=== PATIENT | female | born 1965 | race Two or more races ===

== ENCOUNTER 2020-10-30 19:43 | Emergency (ER) | payer OTHER ==
[~2020-10-30] VITALS: Ht 154.9 cm; Wt 98.9 kg
[~2020-10-30 19:43] MED LIST: HYDROXYCHLOROQ200 MG
[2020-10-30] MEDS ORDERED: DOLOGEN CAPLET1 EACH PO (23:40)
[2020-10-30] MEDS ORDERED: MEDROLPACK PO (23:40)
[2020-10-30] MEDS ORDERED: TUSNEL LIQUID178 ML PO (23:40)
[2020-10-30] MEDS ORDERED: ZITHROMAX500 MG PO (23:40)
== END 2020-10-31 00:02 | disposition home or self-care (01) ==
LOC: ER 19:43
DX: U07.1 COVID-19 (principal); B34.9 Viral infection, unspecified

== ENCOUNTER 2024-06-16 21:18 | Emergency (ER) | payer OTHER ==
[~2024-06-16] VITALS: Ht 154.9 cm; Wt 102.1 kg
[~2024-06-16 21:18] MED LIST changes: +DOLOGEN CAPLET1 EACH PO; +MEDROLPACK PO; +TUSNEL LIQUID178 ML PO; +ZITHROMAX500 MG PO
[2024-06-16] MEDS ORDERED: PLAQUENIL PO (22:08)
[2024-06-17] MEDS ORDERED: METOCLOPRAMIDE HCL 5 MG/ML VIAL IM STA (00:47)
[2024-06-17] MEDS ORDERED: KETOROLAC TROMETHAMINE 60 MG VIAL IM STA (00:49)
[2024-06-17] MEDS ORDERED: HYOSCYAMINE SULFATE 0.125 MG TAB.SUBL SL ONE (01:00)
[2024-06-17] MEDS ORDERED: DIPHENOXYLATE HCL/ATROPINE 1 UDTAB TABLET PO STA (01:05)
== END 2024-06-17 01:45 | disposition left against medical advice (07) ==
LOC: ER 21:20
DX: K52.89 Other specified noninfective gastroenteritis and colitis (principal)
CPT/HCPCS: 96372; 99282; J1885; J2765